=== PATIENT | female | born 1990 | race Caucasian/White ===

== ENCOUNTER 2016-10-26 15:06 | Emergency (ER) ==
[2016-10-26 15:22] VITALS: BP 137/106
--- NOTE | 2016-10-26 17:30 | PROVIDER DOCUMENTATION ---
HPI-Rash/Wound/ReCheck - General Source: patient - History of Present Illness-Dermatology Location: reports: feet, hands Quality: reports: itchy Severity: reports: mild Onset/Duration: reports: gradual, other (2 weeks) Timing: reports: still present, intermittent Context/Associated Symptoms: reports: rash. denies: abscess, abrasion, edema, fever, flushing, hives, tingling Locality of Occurance: Home Similar Symptoms Previously?: No Recently seen or treated by another doctor?: No <Hi Moody - Last Filed: 10/26/16 17:25> <Gene Loza - Last Filed: 10/26/16 17:36> - General Chief Complaint: Sores/Lesions Stated Complaint: RASH Time Seen by Provider: 10/26/16 17:26 Allergies/Adverse Reactions: Allergies Allergy/AdvReac Type Severity Reaction Status Date / Time cefdinir [From Omnicef] Allergy Mild RASH Verified 03/05/16 16:12 diphenhydramine HCl * Allergy Mild RASH Verified 03/05/16 16:12 [From Benadryl] prednisone Allergy Mild ITCHING Verified 03/05/16 16:12 tramadol HCl * [From Ultram] Allergy Mild HEADACHE Verified 03/05/16 16:12 Corticosteroids AdvReac Mild ITCHING Verified 03/05/16 16:12 (Glucocorticoids) Home Medications: Home Medication List Medication Instructions Recorded Confirmed Last Taken Type Acyclovir [Zovirax] 400 mg PO TID #21 tablet 03/05/16 Unknown Rx Amoxicillin [Amoxil] 500 mg PO BID #10 capsule 03/05/16 Unknown Rx Benzocaine 20% Gel [Orajel Maximum 1 applicatn TOP 4XDAY PRN PRN #1 03/05/[address] 20% Gel] tube Ibuprofen [Motrin] 800 mg PO Q8H PRN PRN #20 tablet 03/05/16 Unknown Rx Naproxen Sodium [Aleve] 440 mg PO DIRECTED 03/05/16 03/05/16 03/04/16 History Hydroxyzine Pamoate [Vistaril] 25 mg PO BID PRN #12 capsule 10/26/16 Unknown Rx Triamcinolone [Kenalog in Orabase] 1 applicatn TOP TID #1 tube 03/06/17 Unknown Rx - History of Present Illness-Dermatology Nature of Presenting Problem: pt is a 26 y/o F that presents to the ER with bilateral redness to hands and feet x 2 weeks that have been intermitted. No fever/chills, lesion, or open wounds. Denies throat swelling or shortness of breath. (Hi Moody) Review of Systems - Adult - REVIEW OF SYSTEMS - ADULT Constitutional: denies: chills, fever Eyes: reports: no symptoms reported Ears, Nose, Mouth & Throat: reports: no symptoms reported Cardiovascular: denies: chest pain, palpitations, syncope Respiratory: reports: no symptoms reported Gastrointestinal: denies: abdominal pain, diarrhea, nausea, vomiting Genitourinary: reports: no symptoms reported Musculoskeletal: denies: back pain, joint pain, neck pain Integumentary: reports: itching. denies: mole changes, nail changes Neurological: reports: no symptoms reported Psychiatric: reports: no symptoms reported Endocrine: reports: no symptoms reported Hematologic/Lymphatic: reports: no symptoms reported Allergic/Immunologic: reports: no symptoms reported All Other Systems: Reviewed and Negative <Hi Moody - Last Filed: 10/26/16 17:25> Past History - Adult - PAST MEDICAL HISTORY-ADULT Review of Records: reports: Old Records Reviewed, Nursing Assessment Review, Medications Reviewed Obstetrical/Gynecological: reports: ovarian cysts Neurological: reports: Seizures/Epilepsy Psychiatric: reports: anxiety, bipolar, other (ADHD) - PRIOR SURGERIES/PROCEDURES Surgical/Procedure History: reports: appendectomy, tonsillectomy - IMMUNIZATION STATUS Childhood Immunizations: See Nurse Assessment Flu Vaccine: See Nurse Assessment - FAMILY HISTORY Family History: reviewed, not pertinent - SOCIAL HISTORY Smoking: cigarettes, less than 1 pack/day Alcohol Use Frequency: occasionally (socially) <Hi Moody - Last Filed: 10/26/16 17:25> Physical Exam-General - PHYSICAL EXAM-ADULT Initial Vital Signs Reviewed: Yes - CONSTITUTIONAL General Appearance: alert, no apparent distress - EYES Eyes: PERRL/EOMI, pink conjunctivae - HEAD, EARS, NOSE, MOUTH & THROAT HENMT: normocephalic/atraumatic, moist mucous membranes, normal ENT inspection - NECK Neck: full range of motion, normal inspection. negative: lymphadenopathy - RESPIRATORY Respiratory: lungs clear, normal breath sounds, no respiratory distress, no accessory muscle use - CARDIOVASCULAR Cardiovascular: regular rate, rhythm, no edema, no murmur - GASTROINTESTINAL (ABDOMEN) Abdominal Exam: normal bowel sounds, non tender, soft - MUSCULOSKELETAL Back Exam: no CVA tenderness, no vertebral tenderness Extremity: normal range of motion, no calf tenderness, normal capillary refill, pelvis stable - SKIN Integumentary: warm/dry, erythema (to bilateral hands and feet). negative: abrasion(s), embolic lesions, mottled, warm - NEUROLOGIC Neurologic: grossly normal, no motor/sensory deficits - PSYCHIATRIC Psych/Mental Status: normal mood/affect, normal thought content, normal thought process, oriented x 3 <Hi Moody - Last Filed: 10/26/16 17:25> Progress <Hi Moody - Last Filed: 10/26/16 17:25> <Gene Loza - Last Filed: 10/26/16 17:36> - PLAN OF CARE/RESULTS Progress/Plan/Lab Results: Vital Signs Temp Pulse Resp BP Pulse Ox 10/26/16 15:20 98.1 F 98 H 18 137/106 100 cefdinir [From Omnicef] Allergy (Mild, Verified 03/05/16 16:12) RASH diphenhydramine HCl * [From Benadryl] Allergy (Mild, Verified 03/05/16 16:12) RASH prednisone Allergy (Mild, Verified 03/05/16 16:12) ITCHING tramadol HCl * [From Ultram] Allergy (Mild, Verified 03/05/16 16:12) HEADACHE Corticosteroids (Glucocorticoids) Adverse Reaction (Mild, Verified 03/05/16 16: 12) ITCHING ALL STEROIDS - ITCHING Acyclovir [Zovirax] 400 mg PO TID #21 tablet 03/05/16 Amoxicillin [Amoxil] 500 mg PO BID #10 capsule 03/05/16 Benzocaine 20% Gel [Orajel Maximum St 20% Gel] 1 applicatn TOP 4XDAY PRN PRN #1 tube 03/05/16 Ibuprofen [Motrin] 800 mg PO Q8H PRN PRN #20 tablet 03/05/16 Naproxen Sodium [Aleve] 440 mg PO DIRECTED 03/05/16 (Hi Moody) Departure <Hi Moody - Last Filed: 10/26/16 17:25> - Departure Time of Disposition Order: 17:33 Certified Medical Emergency: Emergent <Gene Loza - Last Filed: 10/26/16 17:36> - Departure DIAGNOSIS: Urticaria Disposition: HOME 01 Condition: Stable Additional Instructions: ED Follow Up Instructions: You have been treated by a care provider in the Emergency Department. These instructions are being provided to you so you can have an understanding of how to care for yourself upon discharge. Upon discharge from the Emergency Department, you are responsible for making arrangements for follow-up care by a physician of your choice. Take all prescribed medications as directed. Return to the Emergency Department immediately for any new or worsening symptoms. You may call the Physician Referral phone number at [phone] to obtain a list of Physicians who are taking new patients. Prescriptions: Triamcinolone [Kenalog in Orabase] 1 applicatn TOP TID #1 tube Hydroxyzine Pamoate [Vistaril] 25 mg PO BID PRN #12 capsule PRN Reason: Itching Attestation - Scribe Verification/Attestation Scribe:: Hi Moody Acting as Scribe for:: Gene Loza Scribe documention review:: This chart was documented by a scribe and accurately reflects the service the provider performed and the decisions made by the provider. - Physician/ CASTRO Attestation Patient care was provided by Advanced Practice Provider:: Yes Advanced Practice Provider:: Gene Loza Advanced Practice Provider documentation review:: The Mid-level provider documentation, treatment plan and medical decision making was reviewed by the physician who agrees with all treatment and medical decision making by the MLP. <Hi Moody - Last Filed: 10/26/16 17:25> Physician Attestation - Physician Attestation I, the provider, attest to the following statement:: Gene Loza Physician documentation Attestation:: This documentation recorded by the scribe accurately reflects the service I personally performed and the decisions made by me. <Hi Moody - Last Filed: 10/26/16 17:25>
== END 2016-10-26 18:24 | disposition home or self-care (01) ==
LOC: ED 15:06
DX: L50.9 Urticaria, unspecified (principal); R21 Rash and other nonspecific skin eruption; L29.9 Pruritus, unspecified; L53.9 Erythematous condition, unspecified; F17.210 Nicotine dependence, cigarettes, uncomplicated